=== PATIENT | female | born 1970 | race Two or more races ===

== ENCOUNTER 2023-09-20 09:17 | Inpatient (IN) | payer OTHER ==
[~2023-09-20] VITALS: Ht 152.4 cm; Wt 65.8 kg
[2023-09-20] MEDS ORDERED: NORVASC5 MG (09:25)
[2023-09-20] MEDS ORDERED: RINGERS SOLUTION,LACTATED 1,000 ML IV STA (10:04)
[2023-09-20] MEDS ORDERED: KETOROLAC TROMETHAMINE 60 MG VIAL IM STA (10:05)
[2023-09-20 10:41] LABS: HEMOGLOBIN 12.6 g/dL (12.0-15.00); MEAN CELL VOLUME 84.7 fL (80.00-100.00); MEAN CORPUSCULAR HEMOGLOBIN 28.9 pg (27.00-32.0); MEAN CORPUSCULAR HGB CONC 34.2 g/dl (32.0-36.0); PLATELET COUNT 344 K/uL (150-450); RED BLOOD COUNT 4.37 M/uL (4.00-6.00); RED CELL DISTRIBUTION WIDTH 14.1 % (11.5-14.5)
[2023-09-20 10:58] LABS: ALBUMIN 3.3 gm/dL (3.4-5.0); BILIRUBIN TOTAL 0.54 mg/dL (0.3-1.2); BILIRUBIN,CONJUGATED 0.17 mg/dL (0.0-0.2); BILIRUBIN,UNCONJUGATED 0.37 mg/dL (0.0-0.6); CALCIUM 9.5 mg/dL (8.5-10.1); CREATININE SERUM 1.01 mg/dL (0.55-1.02); GFR 57.78; POTASSIUM 3.32 mEq/L (3.5-5.1); TOTAL PROTEIN 7.8 gm/dL (6.4-8.2)
[2023-09-20 11:20] LABS: URINE APPEARANCE Turbid; URINE BILIRRUBIN Moderate (NEGATIVE); URINE BLOOD Moderate; URINE COLOR Dark Yellow; URINE GLUCOSE Negative (NEGATIVE); URINE LEUKOCYTE Moderate; URINE NITRATE Positive
[2023-09-20 11:23] LABS: URINE EPITHELIAL CELLS 88.2 uL (0.0-38.8); URINE RBC 45.4 uL (0.0-20.8); URINE WBC 880.9 uL (0.0-23.2)
[2023-09-20 11:33] LABS: URINE BACTERIA > 9821.5 uL (0.0-1933); URINE PROTEIN 100 (NEGATIVE)
[2023-09-20 11:38] LABS: URINE YEAST NEGATIVE /hpf
[2023-09-20] MEDS ORDERED: CEFTRIAXONE SODIUM 2,000 MG VIAL IV ONE (12:00)
[2023-09-20] MEDS ORDERED: PANTOPRAZOLE SODIUM 40 MG/VIAL VIAL IV SCH (17:54)
[2023-09-20] MEDS ORDERED: ENALAPRILAT DIHYDRATE 1.25 MG/ML VIAL IV PRN (18:00)
[2023-09-20] MEDS ORDERED: ONDANSETRON HCL 4 MG in 0.9 % SODIUM CHLORIDE 50 ML IV PRN (18:00)
[2023-09-20] MEDS ORDERED: MEPERIDINE HCL/PF 25 MG/ML VIAL IM PRN (18:00)
[2023-09-20] MEDS ORDERED: PIPERACILLIN/TAZOBACTAM SODIUM 3.375 GM in DEXTROSE 5 % IN WATER 100 ML IV SCH (18:00)
[2023-09-20] MEDS ORDERED: ACETAMINOPHEN 500 MG GEL..CAP PO PRN (18:00)
[2023-09-20] MEDS ORDERED: 0.9 % SODIUM CHLORIDE 1,000 ML IV SCH (18:00)
[2023-09-20 19:00] LABS: INR 1.03; PARTIAL THROMBOPLASTIN TIME 32.8 SECONDS (22.0-34.0); PROTHROMBIN TIME 10.8 SECONDS (9.0-11.5)
[2023-09-20 19:02] LABS: PHOSPHOROUS 3.4 mg/dL (2.5-4.9)
[2023-09-21] MEDS ORDERED: BARIUM SULFATE 450 ML ORAL.SUSP PO SCH (14:15)
[2023-09-22 05:09] LABS: HEMATOCRIT 33.3 % (36.0-45.00); HEMOGLOBIN 11.5 g/dL (12.0-15.00); MEAN CELL VOLUME 84.1 fL (80.00-100.00); MEAN CORPUSCULAR HEMOGLOBIN 29.2 pg (27.00-32.0); MEAN CORPUSCULAR HGB CONC 34.7 g/dl (32.0-36.0); PLATELET COUNT 302 K/uL (150-450); RED BLOOD COUNT 3.95 M/uL (4.00-6.00); RED CELL DISTRIBUTION WIDTH 14.2 % (11.5-14.5)
[2023-09-22 05:46] LABS: ALBUMIN 2.6 gm/dL (3.4-5.0); BILIRUBIN TOTAL 0.88 mg/dL (0.3-1.2); C-REACTIVE PROTEIN 12.5 MG/DL (0.00-0.29); CALCIUM 8.4 mg/dL (8.5-10.1); CREATININE SERUM 0.36 mg/dL (0.55-1.02); GFR 190.03; MAGNESIUM 1.7 mg/dL (1.8-2.4); PHOSPHOROUS 2.8 mg/dL (2.5-4.9); POTASSIUM 3.22 mEq/L (3.5-5.1); TOTAL PROTEIN 5.6 gm/dL (6.4-8.2)
[2023-09-22] MEDS ORDERED: MAGNESIUM SULFATE IN WATER 50 ML IV ONE (10:00)
[2023-09-22] MEDS ORDERED: POTASSIUM CHLORIDE IN WATER 100 ML IV SCH (12:00)
[2023-09-22] MEDS ORDERED: MEPERIDINE HCL/PF 25 MG/ML VIAL IM PRN (21:15)
[2023-09-23] MEDS ORDERED: POTASSIUM CHLORIDE IN WATER 100 ML IV SCH
[2023-09-23 06:52] LABS: CALCIUM 8.1 mg/dL (8.5-10.1); CREATININE SERUM 0.4 mg/dL (0.55-1.02); GFR 168.27; POTASSIUM 3.4 mEq/L (3.5-5.1)
[2023-09-23] MEDS ORDERED: POTASSIUM BICARBONATE/CIT AC 25 MEQ TABLET.EFF PO ONE (09:15)
[2023-09-24] MEDS ORDERED: LACTOBACILLUS ACIDOPHILUS 1 CAP CAP PO SCH (17:00)
[2023-09-25] MEDS ORDERED: MEPERIDINE HCL/PF 25 MG/ML VIAL IM PRN (21:30)
== END 2023-09-26 12:30 | disposition home or self-care (01) | DRG 392 ==
LOC: ER 09:18 → MEDI 18:09 → SEC-K 18:09 → MEDI 19:41
PROVIDERS: General Practice; Internal Medicine Infectious Disease; ADMIT Internal Medicine; ATTEND Internal Medicine
PROC: BW21ZZZ Computerized Tomography (CT Scan) of Abdomen and Pelvis (ICD-10-PCS; principal; 2023-09-20)
PROC: 0D9670Z Drainage of Stomach with Drainage Device, Via Natural or Artificial Opening (ICD-10-PCS; 2023-09-20)
PROC: BW21YZZ Computerized Tomography (CT Scan) of Abdomen and Pelvis using Other Contrast (ICD-10-PCS; 2023-09-21)
DX: K52.9 Noninfective gastroenteritis and colitis, unspecified (principal); K56.609 Unspecified intestinal obstruction, unspecified as to partial versus complete obstruction; I10 Essential (primary) hypertension